=== PATIENT | male | born 1935 | race Two or more races ===

== ENCOUNTER 2018-08-30 12:54 | Outpatient (CLI) | payer MEDICARE | END 2018-08-30 12:55 | disposition home or self-care (01) | LOC: RAD 12:54 ==

== ENCOUNTER 2018-10-17 11:46 | Emergency (ER) | payer MEDICARE ==
[2018-10-17 12:02] VITALS: PULSE 84; RESP 18
--- NOTE | 2018-10-17 14:29 | ED PDOC ---
Arrival/HPI - General Chief Complaint: Lower Extremity Problem/Injury Time Seen by Provider: 10/17/18 12:02 Historian: Patient, Family (son) - History of Present Illness Narrative History of Present Illness (Text): 10/17/18 17:42 83 year old male, on Coumadin, whose past medical history includes a-fib, NH, hypertension, presents to the emergency department accompanied by his son, complaining of left foot and ankle pain for the past 3 days. He was getting into his car when the car door was closed by the wind on his ankle. Patient has had worsening left ankle and foot redness, swelling, and pain. Spoke to Dr. Gaffney this morning who recommended coming to the emergency department for an X-ray. Patient is ambulating with a cane as per baseline, although with pain. He has not taken any medicine for pain. Patient denies any numbness, weakness, paresthesias, fevers, chills, headache, dizziness, chest pain, shortness of breath, dyspnea on exertion, cough, abdominal pain, nausea, vomiting, diarrhea, back pain, neck pain, or any other complaint. PMD: Dr. Gaffney Time/Duration: < week (3 days) Symptom Onset: Gradual Symptom Course: Worsening Activities at Onset: Light Context: Other (car) Past Medical History - Provider Review Nursing Documentation Reviewed: Yes - Cardiac Hx Cardiac Disorders: Yes Hx Cardiac Arrhythmia: Yes Hx NH: Yes Hx Hypertension: Yes - Pulmonary Hx Respiratory Disorders: No - Neurological Hx Neurological Disorder: No - HEENT Hx HEENT Disorder: No - Renal Hx Renal Disorder: No - Endocrine/Metabolic Hx Endocrine Disorders: No - Hematological/Oncological Hx Blood Disorders: No - Integumentary Hx Dermatological Disorder: Yes Hx Cellulitis: Yes - Musculoskeletal/Rheumatological Hx Musculoskeletal Disorders: No - Gastrointestinal Hx Gastrointestinal Disorders: No - Genitourinary/Gynecological Hx Genitourinary Disorders: No - Psychiatric Hx Psychophysiologic Disorder: No Hx Substance Use: No - Surgical History Other/Comment: PACEMAKER - Anesthesia Hx Anesthesia: Yes Family/Social History - Physician Review Nursing Documentation Reviewed: Yes Family/Social History: No Known Family HX Smoking Status: Former Smoker Hx Alcohol Use: No Hx Substance Use: No Allergies/Home Meds Allergies/Adverse Reactions: Allergies Penicillins Allergy (Verified 10/17/18 11:55) SWELLING Home Medications: Home Meds Medication Instructions Recorded Confirmed Carvedilol [Coreg] 25 mg PO BID 10/17/18 10/17/18 Olmesartan/Amlodipin/Hcthiazid 1 tab PO DAILY 10/17/18 10/17/18 [Tribenzor 40-10-25 mg Tablet] Warfarin [Coumadin] 2.5 mg PO DAILY 10/17/18 10/17/18 Review of Systems - Physician Review All systems were reviewed & negative as marked: Yes - Review of Systems Constitutional: absent: Fevers Respiratory: absent: SOB, Cough Cardiovascular: absent: Chest Pain Gastrointestinal: absent: Abdominal Pain, Diarrhea, Nausea, Vomiting Musculoskeletal: Arthralgias (left ankle, left foot pain ). absent: Back Pain, Neck Pain Skin: Cellulitis Neurological: absent: Headache, Dizziness Physical Exam Vital Signs Reviewed: Yes Vital Signs Temp Pulse Resp BP Pulse Ox 10/17/18 11:56 98.9 F 84 18 132/63 96 Temperature: Afebrile Blood Pressure: Normal Pulse: Regular Respiratory Rate: Normal Appearance: Positive for: Well-Appearing, Non-Toxic, Comfortable Pain Distress: None Mental Status: Positive for: Alert and Oriented X 3 - Systems Exam Head: Present: Atraumatic, Normocephalic Pupils: Present: PERRL Extroacular Muscles: Present: EOMI Conjunctiva: Present: Normal Mouth: Present: Moist Mucous Membranes Neck: Present: Normal Range of Motion Respiratory/Chest: Present: Clear to Auscultation, Good Air Exchange. No: Respiratory Distress, Accessory Muscle Use Cardiovascular: Present: Normal S1, S2, Peripheal Pulses Present Back: Present: Normal Inspection. No: Midline Tenderness, Paraspinal Tenderness Upper Extremity: Present: Normal Inspection, Normal ROM, NORMAL PULSES, Neurovascularly Intact, Capillary Refill < 2s. No: Cyanosis, Edema, Temperature Abnormalties Lower Extremity: Present: Edema (generalized edema to the left foot and ankle), NORMAL PULSES, Normal ROM, Tenderness (over the left 1st metatarsal and left ankle over bilateral malleoli), Erythema (dorsum of the left foot), Temperature Abnormalties (increased warmth to the left foot and left ankle), Neurovascularly Intact, Capillary Refill < 2 s Neurological: Present: GCS=15, Speech Normal, Motor Func Grossly Intact, Normal Sensory Function Skin: Present: Warm, Dry, Normal Color. No: Rashes Psychiatric: Present: Alert, Oriented x 3, Normal Insight, Normal Concentration, Normal Affect, Normal Mood Medical Decision Making ED Course and Treatment: 10/17/18 14:29 Impression: 83 year old male, who presents to the emergency department complaining of left foot and ankle pain. Plan: -- Cleocin -- Tylenol -- Left ankle X-ray -- Left foot X-ray -- Reassess and disposition Prior Visits: Notes and results from previous visits were reviewed. Progress Notes: On initial evaluation, left foot physical exam is suspicious for cellulitis. Will give clindamycin. 1425 Alerted by patient that cynthia requested duplex when they spoke to him [employer]. Duplex ordered. 1510 Ankle XR read as negative for obvious fracture or dislocation; significant for soft tissue swelling. Recommends repeat XR in 7-10 days to rule out occult fracture. Foot XR has no official read at this time. 1615 Venous duplex reading prelim reading negative for DVT Spoke with Dr. Gaffney, who recommends patient followup in the office on Monday, in 3 days. 1620 Case discussed with ED attending, Dr. Calderon. With bony tenderness in the foot, and indefinite XR reading, he recommends CT of the lower extremity to definitely rule out fracture, as patient must be ambulatory at home and does not own a wheelchair in order to be non weight bearing until recommended repeat XR in 7-[address] of ankle and foot. Pt updated, understands necessity of imaging. 1815 Patient unwilling to wait for CT, will sign out AMA. Given prescription for Clindamycin and advise followup with podiatry and Dr. Gaffney. Pt refused surgical shoe. Ambulated with cane out of ED without difficulty. Vitals stable and patient well appearing on leaving ED. 1825 The patient is choosing to leave against medical advice. I have personally explained to the patient that choosing to do so may result in permanent bodily harm, disability, or . I have discussed at great length that without further evaluation and monitoring there may be unforeseen circumstances and/or deterioration causing permanent bodily harm or as a result of their choice. The patient is alert, oriented, and shows the mental capacity to make clear decisions regarding the patients health care at this time. The patient continues to wish to leave against medical advice. In light of the patients decision to leave against medical advice, follow-up has been arranged and the patient is aware of the importance to following up as instructed. The patient has been advised that they should return to the emergency room immediately if they change their mind at any time, or if their condition begins to change or worsen in any way. - RAD Interpretation Radiology Orders: 10/17/18 12:09 ANKLE LEFT 3 VIEWS ROUTINE [RAD] Stat 10/17/18 12:16 FOOT LEFT 3 VIEWS ROUTINE [RAD] Stat 10/17/18 14:28 DUPLEX LOWER EXTRM VEIN BILAT [US] Stat - Medication Orders Current Medication Orders: Discontinued Medications Acetaminophen (Tylenol 325mg Tab) 650 mg PO STAT STA Stop: 10/17/18 13:53 Clindamycin HCl (Cleocin) 450 mg PO STAT STA; Protocol Stop: 10/17/18 13:53 - Scribe Statement The provider has reviewed the documentation as recorded by the Cici Moctezuma Provider Scribe Attestation: All medical record entries made by the Scribe were at my direction and personally dictated by me. I have reviewed the chart and agree that the record accurately reflects my personal performance of the history, physical exam, medical decision making, and the department course for this patient. I have also personally directed, reviewed, and agree with the discharge instructions and disposition. Disposition/Present on Arrival - Present on Arrival Any Indicators Present on Arrival: No History of DVT/PE: No History of Uncontrolled Diabetes: No Urinary Catheter: No History of Decub. Ulcer: No History Surgical Site Infection Following: None - Disposition Have Diagnosis and Disposition been Completed?: No Diagnosis: Cellulitis, Injury of ankle and foot Disposition: AGAINST MEDICAL ADVICE Disposition Time: 18:30 Condition: STABLE Discharge Instructions (ExitCare): Cellulitis (ED) Additional Instructions: 2 tablets Clindamycin every 6 hours for 7 days Rest, stay off the left ankle Call Dr. Gaffney's office to make an appointment for Monday Followup with podiatry within 2 days Return to ER with any new/worsening symptoms Prescriptions: Clindamycin [Cleocin] 300 mg PO Q6 #55 cap Referrals: Salvador Gaffney MD [Primary Care Provider] - Follow up with primary Podiatry Clinic [Outside] - Follow up with primary Forms: [employer] (Hungarian)
--- NOTE | 2018-10-17 15:09 | RAD ---
Date of service: 10/17/2018 PROCEDURE: Left Ankle Radiographs. HISTORY: trauma this AM, lateral malleolus pain COMPARISON: Comparison made with prior radiographs left foot dated 10/17/2018. FINDINGS: BONES: No definitive radiographic evidence of acute displaced fracture nor dislocation. Small plantar surface calcaneal enthesophyte. Small bony density within the soft tissues adjacent to the posterior calcaneus could represent old avulsion injury of the posterior calcaneal enthesophyte or incomplete ossification. JOINTS: Normal. No osteoarthritis. Ankle mortise maintained. Talar dome intact SOFT TISSUES: Significant bilateral soft tissue swelling lateral greater than medial. Subcutaneous swelling extends superiorly into the distal aspect of the calf.. Vascular calcifications are present OTHER FINDINGS: None. IMPRESSION: No evidence of acute displaced fracture nor dislocation. Significant bilateral soft tissue swelling lateral greater than medial. If symptoms persist or occult fracture suspected clinically recommend repeat radiographs in 7-10 days as most fractures should become radiographically evident in this timeframe.
--- NOTE | 2018-10-17 16:56 | RAD ---
Date of service: 10/17/2018 PROCEDURE: Left Foot Radiographs. HISTORY: trauma this AM, 1st metatarsal pain COMPARISON: None. FINDINGS: BONES: Normal. No fracture. JOINTS: Normal. SOFT TISSUES: Normal. OTHER FINDINGS: None. IMPRESSION: No acute findings related to/ accounting for the clinical presentation.
[2018-10-17 18:16] VITALS: BP 139/71; TEMP 98.2; O2SAT 99
--- NOTE | 2018-10-17 18:43 | US ---
HISTORY: Leg pain and swelling. Evaluate for DVT PHYSICIAN(S): Bladimir Hsieh MD. TECHNIQUE: Duplex sonography and color-flow Doppler with graded compression were used to evaluate the deep venous systems of both lower extremities. The exam is somewhat limited by edema and the patient's inability to cooperate FINDINGS: The visualized deep venous systems of both lower extremities are sonographically normal and compressible. Normal wave forms and augmentation are seen. There is no sonographic evidence for deep venous thrombosis in the visualized segments of both lower extremities. IMPRESSION: No sonographic evidence for deep venous thrombosis in the visualized segments of both lower extremities.
== END 2018-10-17 18:21 | disposition left against medical advice (07) ==
LOC: ED 11:46
DX: S99.912A Unspecified injury of left ankle, initial encounter (principal); W22.8XXA Striking against or struck by other objects, initial encounter; L03.116 Cellulitis of left lower limb; I10 Essential (primary) hypertension; I48.91 Unspecified atrial fibrillation; I25.2 Old myocardial infarction; Z87.891 Personal history of nicotine dependence; Z79.01 Long term (current) use of anticoagulants